=== PATIENT | female | born 1965 | race Caucasian/White ===

== ENCOUNTER 2016-10-29 06:50 | Emergency (ER) | payer MEDICAID ==
[~2016-10-29] VITALS: Ht 152.4 cm; Wt 59.5 kg
[~2016-10-29 06:50] MED LIST: ASPI81TA3 PO; OMEG100016
[2016-10-29 06:53] VITALS: Ht 152.4 cm; Wt 59.5 kg
[2016-10-29] MEDS ORDERED: ONDANSETRON 4 MG INJ IV STA (07:22)
[2016-10-29] MEDS ORDERED: HYDROmorphONE 1 MG/ML SYG IV STA (07:22)
[2016-10-29 07:46] LABS: BASOPHILS % 0.3 % (0.0-2.0); EOSINOPHILS # 0.1 10^3/ul (0.0-0.5); EOSINOPHILS % 0.7 % (0.0-7.0); HEMATOCRIT 36.9 % (37.0-47.0); HEMOGLOBIN 12.2 g/dl (12.0-16.0); LYMPHOCYTES # 3.6 10^3/ul (0.8-2.9); LYMPHOCYTES % 27.5 % (15.0-51.0); MEAN CORPUSCULAR HEMOGLOBIN 26.8 pg (29.0-33.0); MEAN CORPUSCULAR HGB CONC 33.1 g/dl (32.0-37.0); MEAN CORPUSCULAR VOLUME 80.9 fl (82.0-101.0); MONOCYTE # 0.7 10^3/ul (0.3-0.9); MONOCYTES % 5.6 % (0.0-11.0); NEUTROPHIL # 8.4 10^3/ul (1.6-7.5); NEUTROPHILS % 64.6 % (39.0-77.0); PLATELET COUNT 379 10^3/UL (140-415); RED BLOOD COUNT 4.56 10^6/ul (4.20-5.40); RED CELL DISTRIBUTION WIDTH 13.8 % (11.5-14.5)
[2016-10-29 08:09] LABS: ALBUMIN 4.4 g/dl (3.3-4.9); ALBUMIN/GLOBULIN RATIO 1.12; BILIRUBIN,INDIRECT 0.3 mg/dl (0-1.1); BILIRUBIN,TOTAL 0.3 mg/dl (0.2-1.3); CREATININE 0.67 mg/dl (0.44-1.00); POTASSIUM 3.8 mmol/L (3.5-5.1); TOTAL PROTEIN 8.3 g/dl (6.1-8.1)
--- NOTE | 2016-10-29 08:11 | RADRPT ---
PROCEDURE: US Abdomen (Right upper quadrant) CLINICAL INDICATION: Abdominal pain. TECHNIQUE: Multiple real-time longitudinal and transverse images were acquired of the patient's ri t upper quadrant utilizing a curved array transducer. COMPARISON: None. FINDINGS: Liver is normal in size and echogenicity. No focal liver mass. Portal vein demonstrates hepatopetal flow. Gallbladder is normal. There are no gallstones. There is no gallbladder wall thickening or pericho lecystic fluid. No intra- or extrahepatic biliary dilation. Pancreas is partially visualized and grossly unremarkable. Right kidney demonstrates no hydronephrosis or nephrolithiasis. No ascites. Proximal aorta and IVC are unremarkable. MEASUREMENTS: Liver: 18.2 cm Common Duct: 0.4 cm Right Kidney: 9.9 cm IMPRESSION: 1. No sonographic evidence of an acute or significant abnormality in the right upper quadrant of th e abdomen. RPTAT: EE .Leoncio Velazco MD, Date Time Electronically viewed and signed by .Leoncio Velazco MD, MD on 10/29/2016 08:16 .C/
[2016-10-29] MEDS ORDERED: DICY10CA60 PO (09:20)
[2016-10-29] MEDS ORDERED: HYDR-902 PO (09:20)
[2016-10-29] MEDS ORDERED: OMEP40CA6 PO (09:20)
--- NOTE | 2016-10-29 09:27 | ERD ---
ER Documentation Chief Complaint Date/Time DATE: 10/29/16 TIME: 09:20 Chief Complaint PT with epigastric pain, vomiting, ARMAS since this AM. Hypertensive/Intake. HPI This a 51-year-old female who complains of epigastric pain and right upper quadrant pain this morning with nausea vomiting is nonbilious and nonbloody. The pain described as crampy located mostly in the epigastric region with radiation to the right upper quadrant and right back. No history of gallstones. No chest pain shortness of breath no diarrhea no fever cough ROS All systems reviewed and are negative except as per history of present illness. Medications Home Meds Active Scripts Hydrocodone/Acetaminophen (Rudyard 10-325 Tablet) 1 Each Tablet, 1 TAB PO Q6H Y for PAIN, #7 TAB Prov:RJ THORPE DO 10/29/16 Omeprazole* (Omeprazole*) 40 Mg Capsule.dr, 40 MG PO DAILY for 10 Days, #30 CAP Prov:RJ THORPE DO 10/29/16 Dicyclomine Hcl* (Bentyl*) 10 Mg Capsule, 20 MG PO QID, #30 CAP Prov:RO THORPESTDESIRES A. DO 10/29/16 Aspirin (Aspirin) 81 Mg Chew, 81 MG PO DAILY for 30 Days, TAB Prov:RAYNA JACK MD 08/18/14 Reported Medications [place]-3 Fatty Acids ([place]rigan-3) 1,000 Mg Capsule 07/02/09 Allergies Allergies: Coded Allergies: No Known Drug Allergies (Verified Allergy, Mild, 08/17/14) PMhx/Soc History of Surgery: Yes (TUBAL) Anesthesia Reaction: No Hx Neurological Disorder: No Hx Respiratory Disorders: No Hx Cardiac Disorders: No (dyslipidemia) Hx Psychiatric Problems: No Hx Miscellaneous Medical Probl: No (anemia) Hx Alcohol Use: No Hx Substance Use: No Hx Tobacco Use: No Smoking Status: Never smoker FmHx Family History: No coronary disease Physical Exam Vitals Vital Signs Date Time Temp Pulse Resp B/P Pulse Ox O2 Delivery O2 Flow Rate FiO2 10/29/16 07:45 98.0 70 20 183/114 99 Room Air 10/29/16 06:53 98.2 91 20 190/107 96 Physical Exam Const: Well-developed, well-nourished Head: Atraumatic, normocephalic Eyes: Normal Conjunctiva, PERRLA, EOMI, normal sclera, no nystagmus ENT: Normal External Ears, Nose and Mouth, moist mucus membranes. Neck: Full range of motion. No meningismus, no lymphadenopathy. Resp: Clear to auscultation bilaterally, no wheezing, rhonchi, rales Cardio: Regular rate and rhythm, no murmurs, S1 S2 present Abd: Soft, epigastric and right upper quadrant tenderness is mild to moderate nature non distended. Normal bowel sounds, no guarding or rebound, no pulsitile abdominal masses or bruits Skin: No petechiae or rashes, no ecchymosis , no maculopapular rash Back: No midline or flank tenderness Ext: No cyanosis, or edema, FROM x 4, normal inspection, neurovascularly intact x 4 Neur: Awake and alert, STR 5/5 x 4, sensation intact x 4, no focal findings, cerebellum intact Psych: Normal Mood and Affect Result Diagram: 10/29/16 0720 10/29/16 0720 Results 24 hrs Laboratory Tests Test 10/29/16 07:20 White Blood Count 13.010^3/ul Red Blood Count 4.5610^6/ul Hemoglobin 12.2g/dl Hematocrit 36.9% Mean Corpuscular Volume 80.9fl Mean Corpuscular Hemoglobin 26.8pg Mean Corpuscular Hemoglobin Concent 33.1g/dl Red Cell Distribution Width 13.8% Platelet Count 35368^3/UL Mean Platelet Volume 10.0fl Neutrophils % 64.6% Lymphocytes % 27.5% Monocytes % 5.6% Eosinophils % 0.7% Basophils % 0.3% Nucleated Red Blood Cells % 0.0/100WBC Neutrophils # 8.410^3/ul Lymphocytes # 3.610^3/ul Monocytes # 0.710^3/ul Eosinophils # 0.110^3/ul Basophils # 0.010^3/ul Nucleated Red Blood Cells # 0.010^3/ul Sodium Level 147mmol/L Potassium Level 3.8mmol/L Chloride Level 106mmol/L Carbon Dioxide Level 25mmol/L Anion Gap 20 Blood Urea Nitrogen 18mg/dl Creatinine 0.67mg/dl Glucose Level 111mg/dl Calcium Level 9.0mg/dl Total Bilirubin 0.3mg/dl Direct Bilirubin 0.00mg/dl Indirect Bilirubin 0.3mg/dl Aspartate Amino Transf (AST/SGOT) 22IU/L Alanine Aminotransferase (ALT/SGPT) 36IU/L Alkaline Phosphatase 96IU/L Total Protein 8.3g/dl Albumin 4.4g/dl Globulin 3.90g/dl Albumin/Globulin Ratio 1.12 Lipase 359U/L Current Medications Medications (Trade) Dose Ordered Sig/Misael Route PRN Reason Start Time Stop Time Status Last Admin Dose Admin Hydromorphone HCl (Dilaudid) 1 mg ONCE STAT IV 10/29/16 07:22 10/29/16 07:23 DC 10/29/16 07:31 Ondansetron HCl (Zofran Inj) 4 mg ONCE STAT IV 10/29/16 07:22 10/29/16 07:23 DC 10/29/16 07:31 Procedures/MDM PROCEDURE: US Abdomen (Right upper quadrant) CLINICAL INDICATION: Abdominal pain. TECHNIQUE: Multiple real-time longitudinal and transverse images were acquired of the patient's right upper quadrant utilizing a curved array transducer. COMPARISON: None. FINDINGS: Liver is normal in size and echogenicity. No focal liver mass. Portal vein demonstrates hepatopetal flow. Gallbladder is normal. There are no gallstones. There is no gallbladder wall thickening or pericholecystic fluid. No intra- or extrahepatic biliary dilation. Pancreas is partially visualized and grossly unremarkable. Right kidney demonstrates no hydronephrosis or nephrolithiasis. No ascites. Proximal aorta and IVC are unremarkable. MEASUREMENTS: Liver: 18.2 cm Common Duct: 0.4 cm Right Kidney: 9.9 cm IMPRESSION: 1. No sonographic evidence of an acute or significant abnormality in the right upper quadrant of the abdomen. RPTAT: EE .Leoncio Velazco MD, Date Time Electronically viewed and signed by .Leoncio Velazco MD, on 10/29/2016 08:16 .C/ CC: RJ THORPE DO Patient's has no gallstones. Patient may have biliary colic or gallbladder dysfunction or perhaps peptic ulcer disease in the duodenum. We will treat with Bentyl, Rudyard, omeprazole and discussed low-fat diet Departure Diagnosis: Primary Impression: Abdominal pain Abdominal location: right upper quadrant Qualified Code: R10.11 - Right upper quadrant abdominal pain Condition: Stable Patient Instructions: Abdominal Pain Referrals: DOCTOR,NOT ON STAFF (PCP) RJ THORPE DO Oct 29, 2016 09:27
[2016-10-29 10:00] VITALS: TEMP 97.8
[2016-10-29 10:55] VITALS: BP 133/89; PULSE 60; RESP 18
== END 2016-10-29 11:10 | disposition home or self-care (01) ==
LOC: E/R 06:50
DX: R10.11 Right upper quadrant pain (principal); R11.2 Nausea with vomiting, unspecified; Z79.82 Long term (current) use of aspirin
CPT/HCPCS: 36415; 76705; 80053; 83690; 85025; 96374; 96375; J1170; J2405; Z7502

== ENCOUNTER 2016-11-07 04:39 | Emergency (ER) | payer MEDICAID ==
[~2016-11-07] VITALS: Ht 154.9 cm; Wt 58.0 kg
[~2016-11-07 04:39] MED LIST changes: +DICY10CA60 PO; +HYDR-902 PO; +OMEP40CA6 PO
[2016-11-07 04:45] VITALS: Ht 154.9 cm; Wt 58.0 kg
[2016-11-07] MEDS ORDERED: ONDANSETRON 4 MG INJ IV STA (05:26)
[2016-11-07] MEDS ORDERED: SOD CHLORIDE 0.9% 1,000 ML IV STA (05:26)
[2016-11-07] MEDS ORDERED: morphine 4 MG/ML VIAL IV STA (05:26)
[2016-11-07] MEDS ORDERED: OMEP20CA16 PO (06:05)
[2016-11-07 06:28] LABS: ADD UMIC NO; UR ASCORBIC ACID NEGATIVE (NEGATIVE); UR BILIRUBIN (Dip) NEGATIVE (NEGATIVE); UR BLOOD (Dip) NEGATIVE (NEGATIVE); UR CLARITY CLEAR (CLEAR); UR COLOR STRAW (YELLOW); UR GLUCOSE (Dip) NEGATIVE (NEGATIVE); UR KETONES (Dip) NEGATIVE (NEGATIVE); UR LEUKOCYTE ESTERASE (Dip) NEGATIVE Leu/ul (NEGATIVE); UR NITRITE (Dip) NEGATIVE (NEGATIVE); UR SPECIFIC GRAVITY (Dip) 1.005 (1.003-1.030); UR TOTAL PROTEIN (Dip) NEGATIVE (NEGATIVE); UR UROBILINOGEN (Dip) NEGATIVE (NEGATIVE)
[2016-11-07 06:30] LABS: BASOPHILS % 0.2 % (0.0-2.0); EOSINOPHILS % 0.3 % (0.0-7.0); HEMATOCRIT 39.8 % (37.0-47.0); LYMPHOCYTES % 13.8 % (15.0-51.0); MEAN CORPUSCULAR HEMOGLOBIN 26.4 pg (29.0-33.0); MEAN CORPUSCULAR HGB CONC 32.7 g/dl (32.0-37.0); MEAN CORPUSCULAR VOLUME 80.9 fl (82.0-101.0); MEAN PLATELET VOLUME 10.8 fl (7.4-10.4); MONOCYTE # 0.5 10^3/ul (0.3-0.9); MONOCYTES % 3.3 % (0.0-11.0); NEUTROPHIL # 11.7 10^3/ul (1.6-7.5); PLATELET COUNT 422 10^3/UL (140-415); RED BLOOD COUNT 4.92 10^6/ul (4.20-5.40); RED CELL DISTRIBUTION WIDTH 13.3 % (11.5-14.5); WHITE BLOOD COUNT 14.3 10^3/ul (4.8-10.8)
[2016-11-07] MEDS ORDERED: BISACODYL 10 MG SUPP PR ONE (06:30)
[2016-11-07] MEDS ORDERED: LACTULOSE 30ML CUP PO ONE (06:30)
[2016-11-07 06:45] VITALS: TEMP 98.3
[2016-11-07 06:58] LABS: ALBUMIN 4.8 g/dl (3.3-4.9); ALBUMIN/GLOBULIN RATIO 1.11; BILIRUBIN,INDIRECT 0.6 mg/dl (0-1.1); BILIRUBIN,TOTAL 0.6 mg/dl (0.2-1.3); CALCIUM 9.9 mg/dl (8.4-10.2); CREATININE 0.66 mg/dl (0.44-1.00); POTASSIUM 4.1 mmol/L (3.5-5.1); TOTAL PROTEIN 9.1 g/dl (6.1-8.1)
--- NOTE | 2016-11-07 07:34 | RADRPT ---
PROCEDURE: CT Abdomen and pelvis without contrast. CLINICAL INDICATION: Abdominal pain TECHNIQUE: CT scan of the abdomen and pelvis without contrast was performed on a multidetector hig h-resolution CT scan. . Coronal and sagittal reformatted images were obtained from the axial [facility] e images. Standard CT scan of the abdomen pelvis without contrast protocols were performed. The total exam CTDI equals 7.14 mGy and the total exam DLP equals 402.8 mGy-cm. One or more of the following dose reduction techniques were used: - Automated exposure control. - Adjustment of the mA and/or kV according to patient size. Use of iterative reconstruction technique. COMPARISON: None. FINDINGS: There is extensive retained feces throughout most of the large bowel and rectum and rule out constip ation. The colon is otherwise unremarkable. The appendix is unremarkable. The stomach and small b owel are unremarkable. Negative for intra-abdominal free air, free fluid, abscesses or lymphadenopa thy. The kidneys are normal in size without calcified renal calculi hydronephrosis or intra renal masses bilaterally. The ureters and urinary bladder are unremarkable. The uterus is unremarkable. In the left adnexa is a 2.2 cyst consistent with a left ovarian cyst. A pelvic ultrasound may be helpful for further evaluation. The liver spleen pancreas adrenal glands and gallbladder are unremarkable. No evidence biliary duct al dilation. The aorta is unremarkable. The abdominal pelvic wall is unremarkable. Lung bases are unremarkable. There is an L5 limbus vertebra. There are degenerative changes lower thoracic and lumbar spine wi thout acute osseous findings are osteoblastic/osteolytic lesions. IMPRESSION: 1. Constipation. 2. 2.2 cm left adnexal cyst likely an ovarian cyst. A pelvic ultrasound may be helpful for further evaluation. RPTAT:AAJJ Physician Eric Date Time Electronically viewed and signed by Physician Eric on 11/07/2016 07:34 BM/
[2016-11-07] MEDS ORDERED: SENN-53 PO (07:44)
[2016-11-07] MEDS ORDERED: POLY17PO6 PO (07:44)
[2016-11-07] MEDS ORDERED: DOCU-144 PO (07:44)
--- NOTE | 2016-11-07 07:59 | ERD ---
ER Documentation Chief Complaint Date/Time DATE: 11/07/16 TIME: 07:58 Chief Complaint lower abd pin x 8 days, constipated x 1 day HPI Patient is a 51-year-old female with no medical problems who presents with abdominal pain. She says that she has lower abdominal pain and could not have a bowel movement yesterday. She says that she feels "pain in my anus". The pain started on October 29 and she was seen in the emergency department that day and had a workup with laboratory studies and ultrasound which were negative. She said the pain has been worsening over 1 week. She said that she was given "a pain medicine" but does not know what it was. Upon review of old medical records this is the patient's fourth visit to the ER since 2009. She does not currently have a primary doctor. ROS All systems reviewed and are negative except as per history of present illness. Medications Home Meds Active Scripts Sennosides* (Senna Lax*) 8.6 Mg Tablet, 1 TAB PO DAILY, #30 TAB Prov:TEE GONSALEZ MD 11/07/16 Docusate Sodium* (Colace*) 100 Mg Capsule, 100 MG PO TID, #30 CAP Prov:TEE GONSALEZ MD 11/07/16 Polyethylene Glycol* (Miralax*) 17 Gm Powd.pack, 17 GM PO DAILY, #7 Prov:TEE GONSALEZ MD 11/07/16 Hydrocodone/Acetaminophen ([place] 10-325 Tablet) 1 Each Tablet, 1 TAB PO Q6H Y for PAIN, #7 TAB Prov:RJ THORPE DO 10/29/16 Dicyclomine Hcl* (Bentyl*) 10 Mg Capsule, 20 MG PO QID, #30 CAP Prov:RJ THORPE DO 10/29/16 Reported Medications Omeprazole* (Omeprazole*) 20 Mg Capsule., 20 MG PO, #30 CAP 11/07/16 Discontinued Reported Medications [place]-3 Fatty Acids ([place]-3) 1,000 Mg Capsule 07/02/09 Discontinued Scripts Omeprazole* (Omeprazole*) 40 Mg Capsule.dr, 40 MG PO DAILY for 10 Days, #30 CAP Prov:RJ THORPE DO 10/29/16 Aspirin (Aspirin) 81 Mg Chew, 81 MG PO DAILY for 30 Days, TAB Prov:RAYNA JACK MD 08/18/14 Allergies Allergies: Coded Allergies: No Known Drug Allergies (Unverified Allergy, Mild, 11/07/16) PMhx/Soc History of Surgery: Yes (TUBAL) Anesthesia Reaction: No Hx Neurological Disorder: No Hx Respiratory Disorders: No Hx Cardiac Disorders: No (dyslipidemia) Hx Psychiatric Problems: No Hx Miscellaneous Medical Probl: No (anemia) Hx Alcohol Use: No Hx Substance Use: No Hx Tobacco Use: No Smoking Status: Never smoker FmHx Family History: diabetes Physical Exam Vitals Vital Signs Date Time Temp Pulse Resp B/P Pulse Ox O2 Delivery O2 Flow Rate FiO2 11/07/16 06:45 98.3 82 14 145/79 98 Room Air 11/07/16 05:20 98.6 86 14 176/95 98 Room Air 11/07/16 04:45 97.8 92 20 174/91 98 Physical Exam Const: No acute distress Head: Atraumatic Eyes: Normal Conjunctiva ENT: Normal External Ears, Nose and Mouth. Neck: Full range of motion..~ No meningismus. Resp: Clear to auscultation bilaterally Cardio: Regular rate and rhythm, no murmurs Abd: Soft, diffuse tenderness to palpation without rebound or guarding Skin: No petechiae or rashes Back: No midline or flank tenderness Ext: No cyanosis, or edema Neur: Awake and alert Psych: Normal Mood and Affect Result Diagram: 11/07/16 0541 11/07/16 0541 Results 24 hrs Laboratory Tests Test 11/07/16 05:41 11/07/16 05:58 White Blood Count 14.310^3/ul Red Blood Count 4.9210^6/ul Hemoglobin 13.0g/dl Hematocrit 39.8% Mean Corpuscular Volume 80.9fl Mean Corpuscular Hemoglobin 26.4pg Mean Corpuscular Hemoglobin Concent 32.7g/dl Red Cell Distribution Width 13.3% Platelet Count 61325^3/UL Mean Platelet Volume 10.8fl Neutrophils % 82.0% Lymphocytes % 13.8% Monocytes % 3.3% Eosinophils % 0.3% Basophils % 0.2% Nucleated Red Blood Cells % 0.0/100WBC Neutrophils # 11.710^3/ul Lymphocytes # 2.010^3/ul Monocytes # 0.510^3/ul Eosinophils # 0.010^3/ul Basophils # 0.010^3/ul Nucleated Red Blood Cells # 0.010^3/ul Sodium Level 144mmol/L Potassium Level 4.1mmol/L Chloride Level 102mmol/L Carbon Dioxide Level 24mmol/L Anion Gap 22 Blood Urea Nitrogen 16mg/dl Creatinine 0.66mg/dl Glucose Level 135mg/dl Calcium Level 9.9mg/dl Total Bilirubin 0.6mg/dl Direct Bilirubin 0.00mg/dl Indirect Bilirubin 0.6mg/dl Aspartate Amino Transf (AST/SGOT) 22IU/L Alanine Aminotransferase (ALT/SGPT) 33IU/L Alkaline Phosphatase 117IU/L Total Protein 9.1g/dl Albumin 4.8g/dl Globulin 4.30g/dl Albumin/Globulin Ratio 1.11 Lipase 119U/L Urine Color STRAW Urine Clarity CLEAR Urine pH 6.0 Urine Specific [place] 1.005 Urine Ketones NEGATIVEmg/dL Urine Nitrite NEGATIVEmg/dL Urine Bilirubin NEGATIVEmg/dL Urine Urobilinogen NEGATIVEmg/dL Urine Leukocyte Esterase NEGATIVELeu/ul Urine Hemoglobin NEGATIVEmg/dL Urine Glucose NEGATIVEmg/dL Urine Total Protein NEGATIVEmg/dl Current Medications Medications (Trade) Dose Ordered Sig/Misael Route PRN Reason Start Time Stop Time Status Last Admin Dose Admin Sodium Chloride (NS) 1,000 ml @ 1,000 mls/hr Q1H STAT IV 11/07/16 05:26 11/07/16 06:25 DC 11/07/16 05:35 Morphine Sulfate (morphine) 4 mg ONCE STAT IV 11/07/16 05:26 11/07/16 05:27 DC 11/07/16 05:34 Ondansetron HCl (Zofran Inj) 4 mg ONCE STAT IV 11/07/16 05:26 11/07/16 05:27 DC 11/07/16 05:34 Bisacodyl (Dulcolax Supp) 10 mg ONCE ONCE ND 11/07/16 06:30 11/07/16 06:31 DC 11/07/16 07:01 Lactulose (Enulose) 20 gm ONCE ONCE PO 11/07/16 06:30 11/07/16 06:31 DC 11/07/16 07:01 Procedures/[facility] CT of the abdomen pelvis shows constipation per radiology. Patient is a 51-year-old female with abdominal pain. The patient was found to have constipation on the CT scan. White blood cell count was slightly elevated but otherwise laboratory studies were normal. At this point I doubt acute cholecystitis, pancreatitis, appendicitis, or bowel obstruction. The patient was given lactulose by mouth and Dulcolax suppository. She will be given a prescription for MiraLAX. She will need to follow-up with the local clinics within 24 hours for reevaluation. At this point I do not believe she requires admission to the hospital. The patient was given copies of her laboratory studies and CT scan report prior to discharge. Departure Diagnosis: Primary Impression: Constipation Constipation type: unspecified constipation type Qualified Code: K59.00 - Constipation, unspecified constipation type Additional Impression: Abdominal pain Abdominal location: generalized Qualified Code: R10.84 - Generalized abdominal pain Condition: Fair Patient Instructions: Abdominal Pain, Constipation (Adult) [facility] Usted se hines hecho un examen mdico de control que le indica que no est en guanakito condicin que requiera tratamiento urgente en el Departamento de Emergencia. Un estudio ms profundo y el tratamiento de gleason condicin pueden esperar sin ningn riesgo hasta que usted sea atendida/o en el consultorio de gleason mdico o guanakito cl reed. Es responsabilidad suya arreglar guanakito reji para el seguimiento del lexy. MANEJO DE CONDICIONES NO URGENTES EN EL FUTURO 1) Si usted tiene un mdico de atencin primaria: Usted debera llamar a gleason mdico de atencin primaria antes de venir al departamento de emergencia. Despus de las horas de consultorio, gleason doctor o gleason asociado/a est disponible por telfono. El mdico o enfermero de floridalma en el servicio telefnico puede asesorarle por conrad medio para atender el problema, o lexy contrario se puede programar guanakito reji. 2) Si usted no tiene un mdico de atencin primaria: Llame al mdico o clnica de referencia que aparece abajo yuval las horas de consultorio para hacer guanakito reji para que le vean. CLINICAS: [facility] [phone] [facility] [phone] [facility] [phone] [place] [address] [phone] [place] [address] [phone] [facility] [phone] [address] Additional Instructions: Llame al doctor MAANA y kennedy guanakito REJI PARA DENTRO DE 1-2 VAZQUEZ.Dgale a la secretaria que nosotros le instruimos hacer esta reji.Avise o llame si gleason condicin se empeora antes de la reji. Regresa aqui si peor o no mejor. TEE GONSALEZ MD Nov 07, 2016 07:59
[2016-11-07 08:12] VITALS: BP 146/91; PULSE 82; RESP 18
== END 2016-11-07 08:15 | disposition home or self-care (01) ==
LOC: E/R 04:39
DX: K59.00 Constipation, unspecified (principal); R10.84 Generalized abdominal pain; Z79.82 Long term (current) use of aspirin
CPT/HCPCS: 74176; 80053; 81003; 83690; 85025; 87086; J2270; J2405; J7030; Z7610; 36415; 96374; 96375

== ENCOUNTER 2017-12-17 19:05 | Emergency (ER) | END 2017-12-17 22:23 | disposition home or self-care (01) ==

== ENCOUNTER 2018-09-24 14:40 | Emergency (ER) | payer MEDICAID ==
[~2018-09-24] VITALS: Ht 152.4 cm; Wt 67.0 kg
[~2018-09-24 14:40] MED LIST changes: +ACET500C5 PO; -ASPI81TA3 PO; +CEPH-443 PO; +DICY10CA40 PO; -DICY10CA60 PO; +DOCU-144 PO; +HYDR-3980 PO; -HYDR-902 PO; -OMEG100016; +OMEP20CA16 PO; -OMEP40CA6 PO; +POLY17PO6 PO; +SENN-120 PO
[2018-09-24 14:49] VITALS: Ht 152.4 cm; Wt 67.0 kg
[2018-09-24] MEDS ORDERED: KETOROLAC 60 MG INJ IM STA (17:29)
[2018-09-24] MEDS ORDERED: DEXAMETHASONE 10 MG/ML 1 ML INJ IM ONE (17:30)
[2018-09-24] MEDS ORDERED: CYCLOBENZAPRINE 10 MG TAB PO ONE (17:30)
[2018-09-24] MEDS ORDERED: IBUP800T48 PO (18:06)
[2018-09-24] MEDS ORDERED: CYCL10TA7 PO (18:06)
--- NOTE | 2018-09-24 18:25 | ERD ---
ER Documentation Chief Complaint Chief Complaint UPPER BACK PAIN X 3 WEEKS HPI History of Present Illness: 53-year-old female who denies a past medical history coming in today with complaint of left upper back and left neck pain that is been present for 3 weeks, nonprogressive. Patient reports she has been under s ome stress at home. Associated symptoms includes left-sided headache. At home pharmacological/nonpharmacological treatment for symptoms: Denies Denies social concerns; Denies recent foreign travel ROS All systems reviewed and are negative except as per history of present illness. Medications Home Meds Active Scripts Ibuprofen* (Motrin*) 800 Mg Tab, 800 MG PO Q6H PRN for PAIN AND OR ELEVATED TEMP, #30 TAB Prov:CHRISTOPH DOLL NP 09/24/18 Cyclobenzaprine Hcl* (Cyclobenzaprine Hcl*) 10 Mg Tablet, 10 MG PO TID for MUSCLE SPASM/NECK SPASM PAIN, #20 TAB Prov:CHRISTOPH DOLL NP 09/24/18 Cephalexin* (Keflex*) 500 Mg Capsule, 500 MG PO QID for 7 Days, CAP Prov:DIANNE COLORADO PA-C 12/17/17 Acetaminophen* (Tylophen*) 500 Mg Capsule, 1 CAP PO Q6H PRN for PAIN AND OR ELEV ATED TEMP, #20 CAP Prov:DIANNE COLORADO PA-C 12/17/17 Sennosides* (Senna Lax*) 8.6 Mg Tablet, 1 TAB PO DAILY, #30 TAB Prov:TEE GONSALEZ MD 11/07/16 Docusate Sodium* (Colace*) 100 Mg Capsule, 100 MG PO TID, #30 CAP Prov:TEE GONSALEZ MD 11/07/16 Polyethylene Glycol* (Miralax*) 17 Gm Powd.pack, 17 GM PO DAILY, #7 Prov:TEE GONSALEZ MD 11/07/16 Hydrocodone/Acetaminophen (Bodfish 10-325 Tablet) 1 Each Tablet, 1 TAB PO Q6H PRN for PAIN, #7 TAB Prov:RJ THORPE DO 10/29/16 Dicyclomine HCl (Dicyclomine HCl) 10 Mg Capsule, 20 MG PO QID, #30 CAP Prov:RJ THORPE DO 7/31/17 Reported Medications Omeprazole* (Omeprazole*) 20 Mg Capsule.dr, 20 MG PO, #30 CAP 11/07/16 Allergies Allergies: Coded Allergies: No Known Drug Allergies (Unverified Allergy, Mild, 12/17/17) PMhx/Soc History of Surgery: Yes (TUBAL) Anesthesia Reaction: No Hx Neurological Disorder: No Hx Respiratory Disorders: No Hx Cardiac Disorders: No (dyslipidemia) Hx Psychiatric Problems: No Hx Miscellaneous Medical Probl: No (anemia) Hx Alcohol Use: No Hx Substance Use: No Hx Tobacco Use: No Smoking Status: Never smoker FmHx Family History: No diabetes, No coronary disease Physical Exam Vitals Vital Signs Date Temp Pulse Resp B/P (MAP) Pulse Ox O2 O2 Flow FiO2 Time Delivery Rate 09/24/18 99.0 99 18 144/93 99 14:49 (110) Physical Exam Const: No acute distress, afebrile Head: Atraumatic Eyes: Normal Conjunctiva ENT: Normal External Ears, Nose and Mouth. Neck: Full range of motion. No meningismus. Resp: Clear to auscultation bilaterally Cardio: Regular rate and rhythm, no murmurs Abd: Soft, non tender, non distended. No guarding, no masses, no rigidity Skin: No petechiae or rashes Back: No midline or flank tenderness; tenderness to palpation to left upper back and extending to trapezius and left side of neck Ext: No cyanosis, or edema Neur: Awake and alert x3, speaking in clear sentences, no focal deficits or facial asymmetry Psych: Normal Mood and Affect Results 24 hrs Current Medications Medications Dose Sig/Misael Start Time Status Last (Trade) Ordered Route PRN Stop Time Admin Dose Reason Admin 8 mg ONCE ONCE 09/24/18 DC 09/24/18 Dexamethasone IM 17:30 17:37 (Decadron) 09/24/18 17:31 Ketorolac 60 mg ONCE STAT 09/24/18 DC 09/24/18 Tromethamine IM 17:29 17:37 (Toradol) 09/24/18 17:31 10 mg ONCE ONCE 09/24/18 DC 09/24/18 Cyclobenzapri PO 17:30 17:37 ne HCl 09/24/18 17:31 (Flexeril) Procedures/MDM ED COURSE: ED course includes a thorough examination and history. The patient was stable throughout ED course. I kept the patient and/or family informed of laboratory and diagnostic imaging results throughout the ED course. MEDICATIONS GIVEN IN ER: Cyclobenzaprine, ketorolac, dexamethasone Patient tolerated medication well with no adverse reactions. Patient reported improvement in pain. MEDICAL DECISION MAKING: Low suspicion for life-threatening medical emergency. Low suspicion for neurological emergency. Otherwise healthy patient presenting with constellation of symptoms likely representing uncomplicated neck muscle spasm secondary to stress as characterized by history, physical exam findings. Patient reassessment @ 1815: Decrease in pain after medication administration. patient hemodynamically stable. No respiratory distress, otherwise relatively well appearing and nontoxic. Disposition given. Patient educated on diagnoses, prescriptions, follow-up care, return precautions. Strict return precautions given for worsening condition; questions answered discharge. Patient verbalizes understanding of discharge instructions. PRESCRIPTIONS FOR HOME: Ibuprofen, cyclobenzaprine DISPOSITION: DISCHARGE At this time, patient is stable for discharge and outpatient management. I have instructed the patient to follow-up with his/her primary care physician in 1-2 days. I have discussed with the patient the possibility of needing to see a specialist for further workup and imaging studies if symptoms persist. I have instructed the patient to promptly return to the ER for any new or worsening symptoms including increased pain, fever, nausea, vomiting, weakness or LOC. The patient and/or family expressed understanding of and agreement with this plan. All questions were answered. Home care instructions were provided. DISCLAIMER: Inadvertent spelling and grammatical errors are likely due to EHR/dictation software use and do not reflect on the overall quality of patient care. Also, please note that the electronic time recorded on this note does not necessarily reflect the actual time of the patient encounter. Departure Diagnosis: Primary Impression: Stress Additional Impression: Neck muscle spasm Condition: Stable Patient Instructions: Muscle Spasm Referrals: ON LICENSE OF [facility] YOU HAVE RECEIVED A MEDICAL SCREENING EXAM AND THE RESULTS INDICATE THAT YOU DO NOT HAVE A CONDITION THAT REQUIRES URGENT TREATMENT IN THE EMERGENCY DEPARTMENT. FURTHER EVALUATION AND TREATMENT OF YOUR CONDITION CAN WAIT UNTIL YOU ARE SEEN IN YOUR DOCTORS OFFICE WITHIN THE NEXT 1-2 DAYS. IT IS YOUR RESPONSIBILITY TO MAKE AN APPOINTMENT FOR FOLOW-UP CARE. IF YOU HAVE A PRIMARY DOCTOR --you should call your primary doctor and schedule an appointment IF YOU DO NOT HAVE A PRIMARY DOCTOR YOU CAN CALL OUR PHYSICIAN REFERRAL HOTLINE AT IF YOU CAN NOT AFFORD TO SEE A PHYSICIAN YOU CAN CHOSE FROM THE FOLLOWING [facility] CLINICS [facility] [address] [facility] [address] [facility] [address] [facility] [address] [facility] [address] [facility]. [facility] [address] [facility]. [facility] YOU HAVE RECEIVED A MEDICAL SCREENING EXAM AND THE RESULTS INDICATE THAT YOU DO NOT HAVE A CONDITION THAT REQUIRES URGENT TREATMENT IN THE EMERGENCY DEPARTMENT. FURTHER EVALUATION AND TREATMENT OF YOUR CONDITION CAN WAIT UNTIL YOU ARE SEEN IN YOUR DOCTORS OFFICE WITHIN THE NEXT 1-2 DAYS. IT IS YOUR RESPONSIBILITY TO MAKE AN APPOINTMENT FOR FOLOW-UP CARE. IF YOU HAVE A PRIMARY DOCTOR --you should call your primary doctor and schedule and appointment IF YOU DO NOT HAVE A PRIMARY DOCTOR YOU CAN CALL OUR PHYSICIAN REFERRAL HOTLINE AT . IF YOU CAN NOT AFFORD TO SEE A PHYSICIAN YOU CAN CHOSE FROM THE FOLLOWING [facility] INSTITUTIONS: [facility] [address] [place] [address] [facility] [address] [place] [address] [facility] [address] [place] [address] Additional Instructions: Thank you very much for allowing us to participate in your care. Your health and safety is our top priority at [facility]. It is important to read all discharge instructions and education provided in your discharge packet. Call your primary care doctor TOMORROW for an appointment during the next 2-4 days and bring all the information and medications prescribed. Have prescriptions filled and follow precisely the directions on the label. --Ibuprofen is a medication that will help with pain/inflammation. At the dosage of 600 to 800 mg, this will help with inflammation/swelling. Take this medication as prescribed. --Cyclobenzaprine as a muscle relaxer; take this medication daily as prescribed for the next week to help with your muscle spasm. Do not operate heavy machinery while taking this medication; It may make you drowsy. If the symptoms get worse and your provider is unavailable, return to the Emergency Department immediately. CHRISTOPH DOLL NP Sep 24, 2018 18:25
[2018-09-24 18:26] VITALS: BP 161/92; PULSE 69; RESP 18
== END 2018-09-24 18:27 | disposition home or self-care (01) ==
LOC: FTE 14:40
DX: F43.9 Reaction to severe stress, unspecified (principal); M62.838 Other muscle spasm
CPT/HCPCS: 96372; J1100; J1885; Z7502; Z7610